=== PATIENT | male | born 1975 ===

== ENCOUNTER → 2020-04-17 09:02 | Outpatient (CLI) | payer BC, SELFPAY ==
--- NOTE | ~2020-04-17 | XR_ITS ---
EXAMINATION: XR chest 2V EXAM DATE: 04/17/2020 09:31 INDICATION: Shortness of breath. TECHNIQUE: Frontal and lateral projections of the chest obtained and reviewed. There is no prior shahab dy for comparison. FINDINGS: The lungs are clear. There are no pleural effusions. The cardiomediastinal silhouette is within normal limits. There is no pneumothorax suspected. The bones and soft tissues are unremarkab le. IMPRESSION: Unremarkable chest x-ray exam. Reviewed, dictated and finalized at location A. TICS DIRECTOR
== END ==
DX: R06.02 Shortness of breath (principal)
CPT/HCPCS: 71046